=== PATIENT | female | born 1975 | race Caucasian/White ===

== ENCOUNTER 2022-06-08 17:54 | Emergency (ER) | payer OTHER ==
[~2022-06-08] VITALS: Ht 149.9 cm; Wt 61.2 kg
[2022-06-08] MEDS ORDERED: CLIN300 PO (20:25)
== END 2022-06-08 20:39 | disposition home or self-care (01) ==
LOC: ER 17:54
DX: S02.5XXA Fracture of tooth (traumatic), initial encounter for closed fracture (principal); X58.XXXA Exposure to other specified factors, initial encounter; K04.7 Periapical abscess without sinus
CPT/HCPCS: A9270